=== PATIENT | female | born 1995 | race Caucasian/White ===

== ENCOUNTER 2021-10-07 22:04 | Emergency (ER) | payer BC ==
--- NOTE | 2021-10-07 22:22 | ERPHSYRPT ---
- History of Present Illness Time Seen by Provider: 10/07/21 22:22 Historian: patient Exam Limitations: no limitations Physician History: This is a 25-year-old white female with a history of hypertension and presents with periumbilical, mid abdomen abdominal cramping that significant and began relatively sudden onset this morning. It had nearly completely resolved then returned to worse this evening prior to arrival. She has had several episodes of vomiting. She has never had anything like this in the past. She has had no prior abdominal surgeries. The pain is localized in this region and does not radiate. She has no chest pain. She has no shortness of breath. She has not had fevers. She has had no diarrhea. Timing/Duration: today Abdominal Pain Onset Location: periumbilical Pain Radiation: no radiation Severity of Pain-Max: moderate Severity of Pain-Current: moderate Modifying Factors: Improves With: vomiting Associated Symptoms: loss of appetite, nausea, vomiting, No chest pain, No diarrhea, No fever/chills, No shortness of breath Previous symptoms: no prior history Allergies/Adverse Reactions: No Known Drug Allergies Allergy (Unverified 10/07/21 22:24) Home Medications: Cyclosporine 100 mg PO DAILY 10/07/21 [History] Enalapril Maleate 10 mg [Vasotec 10 MG] 10 mg PO DAILY 10/07/21 [History] Hydrochlorothiazide 50 mg PO DAILY 10/07/21 [History] Montelukast Sodium 10 mg PO DAILY 10/07/21 [History] Prednisone 5 mg [Deltasone 5 mg] 5 mg PO DAILY 10/07/21 [History] Travel Risk - International Travel Have you traveled outside of the country in past 3 weeks: No - Coronavirus Screening Are you exhibiting any of the following symptoms?: No Close contact with a COVID-19 positive Pt in past 14-21 Days: No - Review of Systems Constitutional: No Symptoms Eyes: No Symptoms Ears, Nose, & Throat: No Symptoms Respiratory: No Symptoms Cardiac: No Symptoms Abdominal/Gastrointestinal: Abdominal Pain, Nausea, Vomiting Genitourinary Symptoms: No Symptoms Musculoskeletal: No Symptoms Skin: No Symptoms Neurological: No Symptoms Psychological: No Symptoms Endocrine: No Symptoms Hematologic/Lymphatic: No Symptoms Immunological/Allergic: No Symptoms All Other Systems: Reviewed and Negative - Past Medical History Pertinent Past Medical History: Yes - Past Surgical History Past Surgical History: No - Nursing Vital Signs Nursing Vital Signs: Initial Vital Signs Temperature 97.3 F 10/07/21 22:14 Pulse Rate 76 10/07/21 22:14 Respiratory Rate 18 10/07/21 22:14 Blood Pressure 120/78 10/07/21 22:14 O2 Sat by Pulse Oximetry 99 10/07/21 22:14 Pain Scale Pain Intensity 10 - Physical Exam General Appearance: mild distress, alert, anxiety Eye Exam: PERRL/EOMI, eyes nml inspection Ears, Nose, Throat Exam: normal ENT inspection, moist mucous membranes Neck Exam: normal inspection, non-tender, supple, full range of motion Respiratory Exam: normal breath sounds, lungs clear, airway intact, No chest tenderness, No respiratory distress Cardiovascular Exam: regular rate/rhythm, normal heart sounds, normal peripheral pulses Gastrointestinal/Abdomen Exam: soft, normal bowel sounds, tenderness (Mid abdomen/periumbilical region), guarding, rebound, No pulsatile mass Pelvic Exam: not done Rectal Exam: not done Back Exam: normal inspection, normal range of motion, No CVA tenderness, No vertebral tenderness Extremity Exam: normal inspection, normal range of motion, pelvis stable Neurologic Exam: alert, oriented x 3, cooperative, halftone operator II-XII nml as tested, normal mood/affect, nml cerebellar function, nml station & gait, sensation nml Skin Exam: normal color, warm, dry Lymphatic Exam: No adenopathy SpO2 Interpretation: normal SpO2: 99 O2 Delivery: Room Air - Course Nursing assessment & vital signs reviewed: Yes Ordered Tests: Active Orders 24 hr Category Date Time Status IV Insertion STAT Care 10/07/21 22:37 Active ABDOMEN AND PELVIS W/0 CONTRAS [CT] Stat Exams 10/07/21 22:37 Taken AMYLASE Stat Lab 10/07/21 22:41 Completed CBC W DIFF Stat Lab 10/07/21 22:41 Completed CMP Stat Lab 10/07/21 22:41 Completed CULTURE,URINE Stat Lab 10/07/21 22:41 Received LIPASE Stat Lab 10/07/21 22:41 Completed Lactic Acid Stat Lab 10/07/21 22:52 Received UA W/RFX UR CULTURE Stat Lab 10/07/21 22:41 Completed Medication Summary Discontinued Medications Generic Name Dose Route Start Last Admin Trade Name Freq PRN Reason Stop Dose Admin Hydromorphone HCl 1 mg 10/07/21 22:37 10/07/21 22:52 Hydromorphone 1 Mg/1ml Inj 1 Mg/Ml Syringe IV 10/07/21 22:38 1 mg STAT ONE Administration Hydromorphone HCl Confirm 10/07/21 22:43 Hydromorphone 1 Mg/1ml Inj 1 Mg/Ml Syringe Administered 10/07/21 22:44 Dose 1 mg .ROUTE .STK-MED ONE Sodium Chloride 1,000 mls @ 999 mls/hr 10/07/21 22:37 10/07/21 23:47 Sodium Chloride 0.9% 1000 Ml IV 10/07/21 23:37 Infused .Q1H1M STA Infusion Sodium Chloride Confirm 10/07/21 22:43 Sodium Chloride 0.9% 1000 Ml Administered 10/07/21 22:44 Dose 1,000 mls @ ud .ROUTE .STK-MED ONE Ceftriaxone Sodium/Dextrose 1 g in 50 mls @ 100 mls/hr 10/07/21 23:00 10/07/21 23:47 Rocephin 1 Gm-D5w 50 Ml Bag IV 10/07/21 23:29 Infused STAT STA Infusion Ceftriaxone Sodium/Dextrose Confirm 10/07/21 23:04 Rocephin 1 Gm-D5w 50 Ml Bag Administered 10/07/21 23:05 Dose 1 g in 50 mls @ ud IV .STK-MED ONE Metronidazole 500 mg 10/07/21 23:52 10/07/21 23:53 Metronidazole 500 Mg Tablet PO 10/07/21 23:53 500 mg STAT ONE Administration Metronidazole Confirm 10/07/21 23:51 Metronidazole 500 Mg Tablet Administered 10/07/21 23:52 Dose 500 mg .ROUTE .STK-MED ONE Ondansetron HCl 4 mg 10/07/21 22:37 10/07/21 22:52 Ondansetron Hcl 4 Mg/2 Ml Vial IV 10/07/21 22:38 4 mg STAT ONE Administration Ondansetron HCl Confirm 10/07/21 22:43 Ondansetron Hcl 4 Mg/2 Ml Vial Administered 10/07/21 22:44 Dose 4 mg .ROUTE .STK-MED ONE Pantoprazole Sodium 40 mg 10/07/21 22:37 10/07/21 22:51 Pantoprazole 40 Mg Vial IV 10/07/21 22:38 40 mg STAT ONE Administration Pantoprazole Sodium Confirm 10/07/21 22:43 Pantoprazole 40 Mg Vial Administered 10/07/21 22:44 Dose 40 mg IV .STK-MED ONE Lab/Rad Data: Laboratory Result Diagrams 10/07/21 22:41 10/07/21 22:41 Laboratory Results 10/07/21 10/07/21 10/07/21 Range/Units 22:41 22:41 22:41 WBC 15.9 H (4.0-10.5) K/mm3 RBC 4.55 (4.1-5.4) M/mm3 Hgb 13.5 (12.0-16.0) gm/dl Hct 40.4 (35-47) % MCV 88.8 (78-100) fl MCH 29.7 (26-32) pg MCHC 33.4 (32-36) g/dl RDW 12.1 (11.5-14.0) % Plt Count 316 (150-450) K/mm3 MPV 9.9 (7.5-11.0) fl Gran % 74.1 H (36.0-66.0) % Eos # (Auto) 0.12 (0-0.5) Absolute Lymphs (auto) 2.10 (1.0-4.6) Absolute Monos (auto) 1.84 H (0.0-1.3) Lymphocytes % 13.2 L (24.0-44.0) % Monocytes % 11.6 (0.0-12.0) % Eosinophils % 0.8 (0.00-5.0) % Basophils % 0.3 (0.0-0.4) % Absolute Granulocytes 11.83 H (1.4-6.9) Basophils # 0.04 (0-0.4) Sodium 136 L (137-145) mmol/L Potassium 3.4 L (3.5-5.1) mmol/L Chloride 99 (98-107) mmol/L Carbon Dioxide 26 (22-30) mmol/L Anion Gap 14.4 (5-15) MEQ/L BUN 15 (7-17) mg/dL Creatinine 0.86 (0.52-1.04) mg/dL Estimated GFR > 60.0 ML/MIN Glucose 114 H (74-106) mg/dL Calcium 9.1 (8.4-10.2) mg/dL Total Bilirubin 0.40 (0.2-1.3) mg/dL AST 27 (14-36) U/L ALT 22 (0-35) U/L Alkaline Phosphatase 37 L (38-126) U/L Serum Total Protein 6.8 (6.3-8.2) g/dL Albumin 4.0 (3.5-5.0) g/dL Amylase 52 (30-110) U/L Lipase 122 (23-300) U/L Urine Color YELLOW (YELLOW) Urine Appearance SLIGHTLY CLOUDY (CLEAR) Urine pH 7.0 (5-6) Ur Specific [place] 1.021 (1.005-1.025) Urine Protein 100 (Negative) Urine Ketones SMALL (NEGATIVE) Urine Blood SMALL (0-5) Sumit/ul Urine Nitrite POSITIVE (NEGATIVE) Urine Bilirubin NEGATIVE (NEGATIVE) Urine Urobilinogen NEGATIVE (0-1) mg/dL Ur Leukocyte Esterase NEGATIVE (NEGATIVE) Urine WBC (Auto) 3-5 (0-5) /HPF Urine RBC (Auto) 3-5 (0-2) /HPF U Epithel Cells (Auto) RARE (FEW) /HPF Urine Bacteria (Auto) NONE (NEGATIVE) /HPF Urine Mucus (Auto) SLIGHT (NEGATIVE) /HPF Urine Culture Reflexed YES (NO) Urine Glucose NEGATIVE (NEGATIVE) mg/dL - Progress Progress: improved, pain not gone completely, re-examined Progress Note: 10/07/21 23:55 CAT scan of the abdomen and pelvis without contrast shows jejunal loops are thickened. There is no evidence of obstruction or perforation. The appendix is visualized and it is normal. Picture is consistent with jejunitis. Counseled pt/family regarding: lab results, diagnosis, need for follow-up, rad results - Departure Departure Disposition: Home Clinical Impression: Jejunitis, UTI (urinary tract infection) Condition: Stable Critical Care Time: No Referrals: DOCTOR,NO FAMILY [Primary Care Provider] - Follow up/PCP as directed Additional Instructions: Drink plenty of clear liquids. Do not advance your diet until you are tolerating clear liquids well and you have minimal abdominal pain. Take your antibiotics as prescribed. Follow-up with your primary care physician for further management. Prescriptions: Ondansetron ODT 4 MG [Zofran Odt 4 mg] 4 mg PO Q6H PRN PRN #10 tablet PRN Reason: Vomiting Hydrocodone/APAP 5/325 [[place] 5/325 mg] 1 each PO Q8H PRN PRN #6 tablet MDD 3 PRN Reason: Pain Ciprofloxacin [Cipro 500 MG] 500 mg PO BID #14 tablet Metronidazole 500 mg [Flagyl 500 MG] 500 mg PO TID #21 tablet
[2021-10-07] MEDS ORDERED: PROTONIX 40 MG IV IV ONE ×2 (22:37→22:43)
[2021-10-07] MEDS ORDERED: Sodium Chloride 0.9% 1000 ML 1,000 ML IV STA (22:37)
[2021-10-07] MEDS ORDERED: Zofran 4 MG/2 ML VIAL IV ONE (22:37)
[2021-10-07] MEDS ORDERED: Hydromorphone 1 mg/ml Injection IV ONE (22:37)
[2021-10-07] MEDS ORDERED: Hydromorphone 1 mg/ml Injection ONE (22:43)
[2021-10-07] MEDS ORDERED: Zofran 4 MG/2 ML VIAL ONE (22:43)
[2021-10-07] MEDS ORDERED: Sodium Chloride 0.9% 1000 ML 1,000 ML ONE (22:43)
[2021-10-07 22:48] LABS: Absolute Neutrophil Ct (ANC) 11.83 (1.4-6.9); BASOPHIL % 0.3 % (0.0-0.4); Basophil (Absolute #) 0.04 (0-0.4); Eosinophil % 0.8 % (0.00-5.0); Eosinophil (Absolute #) 0.12 (0-0.5); Hematocrit 40.4 % (35-47); Hemoglobin 13.5 gm/dl (12.0-16.0); Lymphocytes % 13.2 % (24.0-44.0); Mean Cell Volume 88.8 fl (78-100); Mean Corpuscular Hemoglobin 29.7 pg (26-32); Mean Corpuscular Hgb Concent. 33.4 g/dl (32-36); Mean Platelet Volume 9.9 fl (7.5-11.0); Monocyte (Absolute #) 1.84 (0.0-1.3); Monocytes % 11.6 % (0.0-12.0); Neutrophil % 74.1 % (36.0-66.0); Platelet Count 316 K/mm3 (150-450); Red Blood Count 4.55 M/mm3 (4.1-5.4); Red Cell Distribution Width 12.1 % (11.5-14.0); White Blood Count 15.9 K/mm3 (4.0-10.5)
[2021-10-07 22:50] LABS: Appearance SLIGHTLY CLOUDY (CLEAR); Bilirubin NEGATIVE (NEGATIVE); Blood SMALL Ery/ul (0-5); Epithelial Cells RARE /HPF (FEW); Glucose NEGATIVE (NEGATIVE); Ketones SMALL (NEGATIVE); Leukocyte Esterase NEGATIVE (NEGATIVE); Mucus SLIGHT /HPF (NEGATIVE); Nitrite POSITIVE (NEGATIVE); Protein,Urine Dip 100 (Negative); Specific Gravity 1.021 (1.005-1.025); Urobilinogen NEGATIVE mg/dL (0-1)
[2021-10-07 22:58] LABS: ALKALINE PHOSPHATASE 37 U/L (38-126); AMYLASE 52 U/L (30-110); ANION GAP 14.4 MEQ/L (5-15); BLOOD UREA NITROGEN 15 mg/dL (7-17); CHLORIDE 99 mmol/L (98-107); Calcium 9.1 mg/dL (8.4-10.2); Carbon Dioxide 26 mmol/L (22-30); Creatinine 1 0.86 mg/dL (0.52-1.04); EST GLOMERULAR FILTRATION RATE > 60.0 ML/MIN; Glucose 114 mg/dL (74-106); LIPASE 122 U/L (23-300); Potassium 3.4 mmol/L (3.5-5.1); SGOT/AST 27 U/L (14-36); SGPT/ALT 22 U/L (0-35); SODIUM 136 mmol/L (137-145); Total Protein 6.8 g/dL (6.3-8.2)
[2021-10-07] MEDS ORDERED: ROCEPHIN 1 Gm-D5w 50 ml Bag** 1 G/50 ML IVPB IV STA (23:00)
[2021-10-07] MEDS ORDERED: ROCEPHIN 1 Gm-D5w 50 ml Bag** 1 G/50 ML IVPB IV ONE (23:04)
[2021-10-07] MEDS ORDERED: Flagyl 500 MG ONE (23:51)
[2021-10-07] MEDS ORDERED: Flagyl 500 MG PO ONE (23:52)
[2021-10-08 00:25] LABS: Slide Review 1 YES
--- NOTE | 2021-10-08 08:53 | XRAY ---
Indication: Epigastric pain and nausea. Multiple contiguous axial images obtained through the abdomen and pelvis without contrast. Comparison: None Lung bases clear. Heart not enlarged. Noncontrasted stomach and bowel loops are nonobstructed. Degenerative demonstrates moderate circumferential wall thickening with minimal stranding favoring enteritis. Pelvis demonstrates small free fluid presumed reactive. No walled off fluid collection or free air. Normal appendix. Mild diffuse scattered colonic fecal debris throughout. 1 cm uterine calcified fibroid. Remaining liver, gallbladder, pancreas, spleen, adrenal glands, kidneys, ureters, bladder, uterus, and aorta are unremarkable for noncontrast exam. Osseous structures intact. Impression: 1. Jejunal bowel wall thickening and stranding favoring enteritis. Pelvic free fluid presumed reactive. 2. Small uterine calcified fibroid. 3. Mild diffuse fecal stasis. Comment: Preliminary interpretation made by [facility]. No critical discrepancy.
[2021-10-08 17:09] VITALS: BP 126/88; PULSE 50; O2SAT 99
== END 2021-10-08 00:16 | disposition home or self-care (01) ==
LOC: ED 22:04
DX: K52.9 Noninfective gastroenteritis and colitis, unspecified (principal); N39.0 Urinary tract infection, site not specified; R11.2 Nausea with vomiting, unspecified; I10 Essential (primary) hypertension
CPT/HCPCS: 36000; 36415; 74176; 80053; 81001; 82150; 83605; 83690; 85025; 87086; 96360; 96374; 96375; 99284; J0696; J1170; J2405; A9270-GY